=== PATIENT | male | born 1955 | race Two or more races ===

== ENCOUNTER 2020-03-20 07:51 | Outpatient (CLI) | payer OTHER | END 2020-03-20 07:59 | disposition home or self-care (01) | LOC: LAB 07:51 | PROVIDERS: ATTEND Orthopaedic Surgery | DX: D68.8 Other specified coagulation defects (principal); M17.11 Unilateral primary osteoarthritis, right knee ==

== ENCOUNTER 2020-04-06 10:45 | Inpatient (IN) | payer OTHER ==
[~2020-04-06] VITALS: Ht 172.7 cm; Wt 93.0 kg
[2020-04-06] MEDS ORDERED: CLARITIN10 M1 PO (14:11)
[2020-04-06] MEDS ORDERED: KEPPRA1000 MG PO (14:11)
[2020-04-12] MEDS ORDERED: ELIQUIS2.5 MG PO (16:06)
[2020-04-12] MEDS ORDERED: PERCOCET 5-3251 EACH PO (16:06)
[2020-04-12] MEDS ORDERED: DUI500 PO (16:06)
== END 2020-04-12 19:40 | DRG 470 ==
LOC: O/R 04-10 05:35 → SURG 04-10 05:35 → SURG-SUITE 04-10 07:00 → O/R 04-10 10:45 → SURG 04-10 10:54
PROVIDERS: ADMIT Orthopaedic Surgery; ATTEND Orthopaedic Surgery
PROC: 0MNP0ZZ Release Left Knee Bursa and Ligament, Open Approach (ICD-10-PCS; 2020-04-10)
PROC: 0SRD0J9 Replacement of Left Knee Joint with Synthetic Substitute, Cemented, Open Approach (ICD-10-PCS; principal; 2020-04-10 07:00)
DX: M17.12 Unilateral primary osteoarthritis, left knee (principal); M22.12 Recurrent subluxation of patella, left knee